=== PATIENT | male | born 1995 | race Asian ===

== ENCOUNTER 2019-09-17 19:34 | Emergency (ER) | payer OTHER ==
[~2019-09-17] VITALS: Ht 170.2 cm; Wt 53.5 kg
[2019-09-17 20:41] VITALS: Ht 170.2 cm; Wt 53.5 kg
[2019-09-17 21:55] VITALS: BP 129/71
== END 2019-09-17 21:55 | disposition home or self-care (01) ==
LOC: ED 19:34
DX: S60.222A Contusion of left hand, initial encounter (principal); X58.XXXA Exposure to other specified factors, initial encounter; Y93.89 Activity, other specified; Y92.89 Other specified places as the place of occurrence of the external cause; Y99.8 Other external cause status